=== PATIENT | male | born 1985 | race Two or more races ===

== ENCOUNTER 2021-12-21 11:03 | Emergency (ER) | payer OTHER ==
[2021-12-21 11:27] LABS: BILIRUBIN,URINE NEGATIVE (NEGATIVE); CLARITY,URINE CLEAR (CLEAR); GLUCOSE, URINE (UA) NEGATIVE (NEGATIVE); KETONES,URINE (UA) NEGATIVE (NEGATIVE); LEUKOCYTE ESTERASE, URINE NEGATIVE (NEGATIVE); NITRITE,URINE NEGATIVE (NEGATIVE); OCCULT BLOOD,URINE NEGATIVE (NEGATIVE); PROTEIN,URINE NEGATIVE (NEGATIVE); UROBILINOGEN,URINE 0.2 (NORMAL) E.U./dL (NORMAL)
[2021-12-21 11:30] LABS: BASOPHILS % (AUTO) 0.2 %; EOSINOPHILS # (AUTO) 0.2 10^3/uL (0.0-0.7); EOSINOPHILS % (AUTO) 1.6 %; HCT - HEMATOCRIT 48.8 % (42.0-52.0); HGB - HEMOGLOBIN 16.8 g/dL (14.0-18.0); LYMPHOCYTES # (AUTO) 2.3 10^3/uL (1.5-3.5); LYMPHOCYTES % (AUTO) 24.7 %; MEAN CORPUSCULAR HEMOGLOBIN 30.7 pg (27.0-31.0); MEAN CORPUSCULAR HGB CONC 34.4 g/dL (32.0-36.0); MEAN CORPUSCULAR VOLUME 89.2 fL (80.0-94.0); MEAN PLATELET VOLUME 9.9 fL (7.4-11.4); MONOCYTES # (AUTO) 0.7 10^3/uL (0.0-1.0); MONOCYTES % (AUTO) 7.2 %; NEUTROPHILS # (AUTO) 6.2 10^3/uL (1.5-6.6); NEUTROPHILS % (AUTO) 65.8 %; PLT - PLATELET COUNT 269 10^3/uL (130-450); RED BLOOD COUNT 5.47 10^6/uL (4.70-6.10); RED CELL DISTRIBUTION WIDTH 12.6 % (12.0-15.0); WHITE BLOOD COUNT 9.4 x10^3/uL (4.8-10.8)
[2021-12-21 11:43] LABS: ALBUMIN 4.1 g/dL (3.2-5.5); ALBUMIN/GLOBULIN RATIO 1.1 (1.0-2.2); BILIRUBIN,TOTAL 0.6 mg/dL (0.2-1.0); CALCIUM 9.5 mg/dL (8.5-10.3); CREATININE 1.4 mg/dL (0.6-1.2); POTASSIUM 3.8 mmol/L (3.5-5.0); TOTAL PROTEIN 7.8 g/dL (6.7-8.2)
--- NOTE | 2021-12-21 14:35 | ED Physician Documentation ---
PD HPI NVD - Stated complaint Stated Complaint: DIARRHEA; ABD PAIN - Chief complaint Chief Complaint: Abd Pain - History obtained from History obtained from: Patient - History of Present Illness Timing - onset: How many weeks ago (2) Timing - duration: Weeks (2) Timing - details: Abrupt onset (onset of nausea/vomiting and diarrhea 2 weeks ago while in [facility] visiting family. vomiting lasted a day, then less. COntinues with diarrhea. Got meds in [place] (Neomycin? antibiotic, and Meclizine? for nausea). IMproved some but still persists diarrhea 4-5 times daily with cramping AP.), Still present Associated symptoms: Abdominal pain, Loss of appetite. No: Fever, Melena, Hematochezia, Dysuria Contributing factors: Travel (to [place] 2 weeks ago, returned 5 days ago.), Recent antibiotics (while in [place] for the diarhea.). No: Sick contact, Bad food Improved by: No: Eating Worsened by: Eating (has BM soon after, watery and odorous.) Similar symptoms before: Has not had sx before Recently seen: Clinic ([facility] today and referred to ER for concern of abd pain, possible CT/US.) Review of Systems Constitutional: denies: Fever, Chills Nose: denies: Rhinorrhea / runny nose, Congestion Throat: denies: Sore throat Respiratory: denies: Cough GI: reports: Abdominal Pain (cramping more to right), Nausea, Vomiting (2 weeks ago, not recent.), Diarrhea (watery, without blood). denies: Constipation : denies: Dysuria, Frequency Neurologic: reports: Generalized weakness PD PAST MEDICAL HISTORY - Past Medical History Cardiovascular: None Respiratory: None Endocrine/Autoimmune: None GI: GERD - Present Medications Home Medications: Ambulatory Orders Medication Instructions Recorded Confirmed L.acid/L.casei/B.bif/B.juan jose/Fos 1 each PO TID 7 Days #20 cap 12/21/21 [Probiotic Blend Capsule] Loperamide [Imodium] 4 mg PO QID PRN #24 cap 12/21/21 Omeprazole 40 mg PO 12/21/21 Ondansetron Odt [Zofran] 4 mg TL Q6H PRN #15 tablet 12/21/21 Sucralfate [Carafate] 1 gm PO ACHS #20 tablet 12/21/21 - Allergies Allergies/Adverse Reactions: Allergies Allergy/AdvReac Type Severity Reaction Status Date / Time No Known Drug Allergies Allergy Verified 12/21/21 11:05 PD ED PE NORMAL - Vitals Vital signs reviewed: Yes - General General: Alert and oriented X 3, No acute distress, Well developed/nourished - HEENT HEENT: Pharynx benign - Neck Neck: Supple, no meningeal sign, No adenopathy - Cardiac Cardiac: RRR, No murmur - Respiratory Respiratory: Clear bilaterally - Abdomen Abdomen: Normal bowel sounds, Soft, Non distended, No organomegaly, Other (some tender mid abd to upper and RUQ. NO percussion nor rebound tenderness. NO guarding. ) - Back Back: No CVA TTP - Derm Derm: Normal color, Warm and dry - Neuro Neuro: Alert and oriented X 3, No motor deficit, Normal speech Results - Vitals Vitals: Vital Signs - 24 hr 12/21/21 12/21/21 12/21/21 11:05 16:25 17:36 Temperature 36.5 C 36.6 C Heart Rate 66 64 64 Respiratory 16 14 14 Rate Blood Pressure 109/68 120/77 122/74 O2 Saturation 100 99 98 Oxygen O2 Source Room air - Labs Labs: Laboratory Tests 12/21/21 12/21/21 12/21/21 11:21 11:26 11:26 WBC 9.4 RBC 5.47 Hgb 16.8 Hct 48.8 MCV 89.2 MCH 30.7 MCHC 34.4 RDW 12.6 Plt Count 269 MPV 9.9 Neut # (Auto) 6.2 Lymph # (Auto) 2.3 [place] # (Auto) 0.7 Eos # (Auto) 0.2 Baso # (Auto) 0.0 Absolute Nucleated RBC 0.00 Nucleated RBC % 0.0 Sodium 138 Potassium 3.8 Chloride 100 L Carbon Dioxide 29 Anion Gap 9.0 BUN 14 Creatinine 1.4 H Estimated GFR (MDRD) 57 L Glucose 91 Calcium 9.5 Total Bilirubin 0.6 AST 26 ALT 76 H Alkaline Phosphatase 67 Total Protein 7.8 Albumin 4.1 Globulin 3.7 Albumin/Globulin Ratio 1.1 Lipase 31 Urine Color DARK YELLOW Urine Clarity CLEAR Urine pH 6.0 Ur Specific [place] 1.025 Urine Protein NEGATIVE Urine Glucose (UA) NEGATIVE Urine Ketones NEGATIVE Urine Occult Blood NEGATIVE Urine Nitrite NEGATIVE Urine Bilirubin NEGATIVE Urine Urobilinogen 0.2 (NORMAL) Ur Leukocyte Esterase NEGATIVE Ur Microscopic Review NOT INDICATED Urine Culture Comments NOT INDICATED Stl C. diff Tox B Gene 12/21/21 15:30 WBC RBC Hgb Hct MCV MCH MCHC RDW Plt Count MPV Neut # (Auto) Lymph # (Auto) [place] # (Auto) Eos # (Auto) Baso # (Auto) Absolute Nucleated RBC Nucleated RBC % Sodium Potassium Chloride Carbon Dioxide Anion Gap BUN Creatinine Estimated GFR (MDRD) Glucose Calcium Total Bilirubin AST ALT Alkaline Phosphatase Total Protein Albumin Globulin Albumin/Globulin Ratio Lipase Urine Color Urine Clarity Urine pH Ur Specific [place] Urine Protein Urine Glucose (UA) Urine Ketones Urine Occult Blood Urine Nitrite Urine Bilirubin Urine Urobilinogen Ur Leukocyte Esterase Ur Microscopic Review Urine Culture Comments Stl C. diff Tox B Gene NEGATIVE - Rads (name of study) abd/pelvic CT Radiology: Prelim report reviewed (no acute abnormality), See rad report PD MEDICAL DECISION MAKING - ED course Complexity details: reviewed results (abd CT without speciific focal abnormality.), considered differential, d/w patient ED course: stool culture pending. C Diff delayed result but is negative. Labs okay. Not clear if abx would be useful. Will try antidiarrheal, antiemetic, and probiotics. Departure - Departure Disposition: 01 Home, Self Care Clinical Impression: Abdominal cramping Diarrhea Qualifiers: Diarrhea type: presumed infectious Qualified Code(s): R19.7 - Diarrhea, unspecified Condition: Stable Record reviewed to determine appropriate education?: Yes Follow-Up: SKYLER ACEVEDO MD [Primary Care Provider] - Prescriptions: Sucralfate [Carafate] 1 gm PO ACHS #20 tablet Loperamide [Imodium] 4 mg PO QID PRN #24 cap PRN Reason: Diarrhea L.acid/L.casei/B.bif/B.juan jose/Fos [Probiotic Blend Capsule] 1 each PO TID 7 Days #20 cap Ondansetron Odt [Zofran] 4 mg TL Q6H PRN #15 tablet PRN Reason: Nausea / Vomiting Comments: Frequent fluids with hydration. Plan food initially with emphasis on starches and carbohydrates will often help with the diarrhea. Your CT scan does not show any localized abnormalities such as gallbladder, appendix, diverticulitis, colitis. The stool tests will be more helpful with regard to the need for antibiotics or not. Imodium every 6 hours if needed for diarrhea. Ondansetron if needed for nausea. I would continue your usual omeprazole medication. To that add sacral fate 3-4 times daily for the next 5 days to help coat the stomach which no doubt would be irritated from the prior vomiting etc. Also add a probiotic 2-3 times daily for the next 5 to 7 days. Your C. difficile test is not resulted as yet. We will call you with the results of the later and also with the stool culture results in the next day or two. I transmitted your prescriptions to [facility] pharmacy in [place]. Discharge Date/Time: 12/21/21 17:38
[2021-12-21] MEDS ORDERED: KETOROLAC 15 MG/ML VIAL IVP STA (15:17)
[2021-12-21] MEDS ORDERED: SODIUM CHLORIDE 0.9% 1,000 ML IV STA (15:17)
[2021-12-21] MEDS ORDERED: FAMOTIDINE 20 MG/2 ML VIAL IVP STA (15:18)
[2021-12-21] MEDS ORDERED: ONDANSETRON 4 MG/2 ML VIAL IVP STA (15:18)
[2021-12-21] MEDS ORDERED: IOPAMIDOL-300 100 ML VIAL ONE (15:33)
--- NOTE | 2021-12-21 15:53 | CT Report ---
PROCEDURE: Abdomen/Pelvis W INDICATIONS: diarrhea, and right abd pain CONTRAST: IV CONTRAST: Optiray 320 ml: 100 PO CONTRAST: *NO PO CONTRAST TECHNIQUE: After the administration of IV contrast, 5 mm thick sections acquired from the diaphragms to the symp hysis. 5 mm thick coronal and sagittal reformats were acquired. For radiation dose reduction, the f ollowing was used: automated exposure control, adjustment of mA and/or kV according to patient size. COMPARISON: None. FINDINGS: Image quality: Excellent. ABDOMEN: Lung bases: Lung bases are clear. Heart size is normal. Solid organs: Liver and spleen are normal in size and enhancement. Gallbladder is within normal boyd its Biliary system is non dilated. Pancreas enhances normally. No adrenal nodules. Kidneys demons trate normal size and enhancement, without hydronephrosis. Peritoneum and bowel: There is no bowel obstruction. No abnormal bowel wall thickening or mesenteric fat stranding. Appendix is not definitively identified. No inflammatory changes are seen in right low er quadrant abdomen. Nodes and vessels: No retroperitoneal or mesenteric adenopathy by size criteria. Subcentimeter lymp h nodes are seen scattered in right mid to lower abdominal mesentery and measures up to 5 to 6 mm in size. Aorta and inferior vena cava are normal in size. Miscellaneous: No ventral hernias. PELVIS: Genitourinary: Bladder wall thickness is normal. Miscellaneous: No inguinal hernias or adenopathy. Bones: No suspicious bony lesions. No vertebral body compression fractures. IMPRESSION: 1. No gross abnormal bowel wall thickening or mesenteric fat stranding. No free fluid or free air. No bowel obstruction. 2. Nonspecific subcentimeter right mesenteric lymph nodes which can be seen associated with mesenteri c adenitis. 3. Rest of the exam is unremarkable. Reviewed by: Edgar Ayala MD on 12/21/2021 3:52 PM PDT Approved by: Edgar Ayala MD on 12/21/2021 3:52 PM PDT Station ID: [id number]
[2021-12-21] MEDS ORDERED: LOPERAMIDE 2 MG CAPSULE PO STA (16:19)
[2021-12-21 17:39] VITALS: BP 122/74
[2021-12-22] MEDS ORDERED: IOPAMIDOL-300 100 ML VIAL IVP ONE (15:48)
== END 2021-12-21 17:38 | disposition home or self-care (01) ==
LOC: ED 11:03
DX: R10.9 Unspecified abdominal pain (principal); R19.7 Diarrhea, unspecified
CPT/HCPCS: 36415; 74177; 80053; 81003; 83690; 85025; 87493; 96374; 99282; 99284; A9270; Q9967; 81001; 87045; 87046; 87086

== ENCOUNTER 2021-12-27 13:54 | Outpatient (CLI) | payer OTHER ==
[2021-12-27] MEDS ORDERED: GADOBUTROL 10 MMOL/10 ML VIAL ONE (14:23)
--- NOTE | 2021-12-27 15:38 | MRI Report ---
PROCEDURE: Brain W/WO INDICATIONS: HEMANGIOMA CONTRAST: IV CONTRAST: Gadavist ml: 9.9 TECHNIQUE: Noncontrast axial T1 spin echo, axial T2 fast spin echo, sagittal and axial FLAIR, coronal T2 fast sp in echo, axial gradient echo, axial diffusion and ADC through the brain. After the administration of contrast, axial and coronal T1 spin echo with fat saturation through the brain. COMPARISON: None. FINDINGS: Image quality: Excellent. CSF spaces: Basal cisterns are patent. No extra-axial fluid collections. Ventricles are normal in size and shape. Brain: Small focus of blooming susceptibility artifact within the left hawkins radiata (series [id number]). This would be consistent with a hemangioma. There is no associated abnormal enhancement. No a bnormal brain parenchymal signal intensity otherwise. Skull and face: Calvarial marrow is normal in signal. Orbits appear normal. Sinuses: Sinuses and mastoids appear clear. IMPRESSION: Small focus of susceptibility artifact in the left deep white matter is nonspecific but would be cons istent with a hemangioma/cavernoma as provided in the clinical history. Correlation with any prior ou tside imaging would be helpful, if available. Reviewed by: Alejandro Akins MD on 12/27/2021 3:36 PM PDT Approved by: Alejandro Akins MD on 12/27/2021 3:36 PM PDT Station ID: [id number]
[2021-12-27] MEDS ORDERED: GADOBUTROL 10 MMOL/10 ML VIAL IVP ONE (16:50)
== END 2021-12-27 13:55 | disposition home or self-care (01) ==
LOC: DI 13:54
PROVIDERS: ATTEND Family Medicine
DX: D18.09 Hemangioma of other sites (principal); R94.02 Abnormal brain scan
CPT/HCPCS: 70553; A9585

== ENCOUNTER 2024-03-27 13:33 | Outpatient (CLI) | payer OTHER ==
[2024-03-27] MEDS ORDERED: GADOTERATE MEGLUMINE 10 MMOL/20 ML VIAL ONE (13:59)
[2024-03-27] MEDS: GADOTERATE MEGLUMINE 10 MMOL/20 ML VIAL IVP ONE (15:02)
--- NOTE | 2024-03-27 20:48 | MRI Report ---
PROCEDURE: Brain W/WO INDICATIONS: HEMANGIOMA TECHNIQUE: Multiplanar multisequential MR images of the brain were obtained before and after intrave nous contrast administration. COMPARISON: None. FINDINGS: CSF spaces: Basal cisterns are patent. No extra-axial fluid collections. Ventricles are normal in size and shape. Brain: No midline shift. No intracranial bleeds or masses. No abnormal intracranial enhancement. The brainstem appears normal. Diffusion-weighted images demonstrate no acute infarct. Normal intrav ascular flow voids are present. Small cavernous hemangioma in the left mid cingulate gyrus remains unchanged from the prior exam Skull and face: Calvarial marrow is normal in signal. Orbits appear normal. Sinuses: Sinuses and mastoids appear clear. IMPRESSION: Small left cavernous hemangioma, unchanged. Reviewed by: David Muñiz MD on 03/27/2024 7:47 PM AKDT Approved by: David Muñiz MD on 03/27/2024 7:47 PM AKDT Station ID: [id number]
== END 2024-03-27 13:34 | disposition home or self-care (01) ==
LOC: DI 13:33
PROVIDERS: ATTEND Family Medicine
DX: D18.09 Hemangioma of other sites (principal)
CPT/HCPCS: 70553; A9575